=== PATIENT | female | born 1970 | race Caucasian/White ===

== ENCOUNTER 2017-10-10 16:03 | Inpatient (IN) | payer OTHER ==
[2017-10-10 18:42] VITALS: BMI 30.9
--- NOTE | 2017-10-10 19:30 | HP ---
CIWA Score - CIWA Score Nausea/Vomitin-Int. Nausea w/Dry Heave Muscle Tremors: 4-Moderate,w/Arms Extend Anxiety: 4-Mod. Anxious/Guarded Agitation: 4-Moderately Restless Paroxysmal Sweats: 3 Orientation: 0-Oriented Tacttile Disturbances: 2-Mild Itch/Numbness/Burn Auditory Disturbances: 0-None Visual Disturbances: 0-None Headache: 3-Moderate CIWA-Ar Total Score: 24 Admission ROS BHS - HPI Chief Complaint: Withdrawal sx. Allergies/Adverse Reactions: Allergies Allergy/AdvReac Type Severity Reaction Status Date / Time Penicillins Allergy Rash Verified 10/10/17 18:47 History of Present Illness: 47 y/o woman with a long hx. of alcoholism is admitted for detox. Pt. has been in previous detox, denies significant sobriety. Exam Limitations: No Limitations - Ebola screening Have you traveled outside of the country in the last 21 days: No (N) Have you had contact with anyone from an Ebola affected area: No Have you been sick,other than usual withdrawal symptoms: No Do you have a fever: No - Review of Systems Constitutional: Diaphoresis, Unexplained wgt Loss Respiratory: reports: Cough Cardiac: reports: Palpitations GI: reports: Nausea, Vomiting, Abdominal cramping : reports: No Symptoms Reported Musculoskeletal: reports: Back Pain, Joint Pain, Muscle Pain Integumentary: reports: Sweating Neuro: reports: Seizure (once 3 yrs. ago), Tingling, Tremors Endocrine: reports: No Symptoms Reported Hematology: reports: No Symptoms Reported Psychiatric: reports: No Sypmtoms Reported Other Systems: Reviewed and Negative Patient History - Patient Medical History Hx Anemia: No Hx Asthma: No Hx Chronic Obstructive Pulmonary Disease (COPD): No Hx Cancer: No Hx Cardiac Disorders: No Hx Congestive Heart Failure: No Hx Hypertension: Yes Hx Hypercholesterolemia: No Hx Pacemaker: No HX Cerebrovascular Accident: No Hx Seizures: Yes (alcohol related seizures 3 yrs ago) Hx Dementia: No Hx Diabetes: No Hx Gastrointestinal Disorders: Yes (GERD) Hx Liver Disease: No Hx Genitourinary Disorders: No Hx Sexually Transmitted Disorders: No Hx Renal Disease (ESRD): No Hx Thyroid Disease: No Hx Human Immunodeficiency Virus (HIV): No Hx Hepatitis C: No Hx Depression: Yes Hx Suicide Attempt: No (Does not want to answer) Hx Bipolar Disorder: No Hx Schizophrenia: No - Patient Surgical History Past Surgical History: Yes Hx Neurologic Surgery: No Hx Cataract Extraction: No Hx Cardiac Surgery: No Hx Lung Surgery: No Hx Breast Surgery: No Hx Breast Biopsy: No Hx Abdominal Surgery: No Hx Appendectomy: Yes (1990) Hx Cholecystectomy: No Hx Genitourinary Surgery: No Hx Section: No Hx Orthopedic Surgery: No Hx Hysterectomy: Yes (1992) Anesthesia Reaction: No - PPD History Previous Implant?: Yes Documented Results: Negative w/proof Date: 07/18/16 Results: 0mm PPD to be Administered?: Yes - Reproductive History Patient is a Female of Child Bearing Age (11 -55 yrs old): Yes Patient : No - Smoking Cessation Smoking history: Current every day smoker Have you smoked in the past 12 months: Yes Aproximately how many cigarettes per day: 40 Cigars Per Day: 0 Hx Chewing Tobacco Use: No Initiated information on smoking cessation: Yes 'Breaking Loose' booklet given: 10/10/17 - Substance & Tx. History Hx Alcohol Use: Yes Hx Substance Use: No Substance Use Type: Alcohol Hx Substance Use Treatment: Yes (Detox [facility] 07/2016 & [facility] in [place] ) - Substances Abused Alcohol Route: Oral Frequency: Daily Amount used: white wine 3 liters Age of first use: 27 Date of Last Use: 10/10/17 Family Disease History - Family Disease History Family Disease History: CA: Father (lung ,alcoholism), Other: Father, Mother (suicidal ,depression) Admission Physical Exam BHS - Vital Signs Vital Signs: Vital Signs - 24 hr 10/10/17 18:33 Temperature 98.0 F Pulse Rate 130 H Respiratory 18 Rate Blood Pressure 133/100 - Physical General Appearance: Yes: Alcohol on Breath, Tremorous, Irritable, Sweating, Anxious HEENTM: Yes: Rhinorrhea Respiratory: Yes: Chest Non-Tender, Lungs Clear, Normal Breath Sounds Neck: Yes: Supple Breast: Yes: Breast Exam Deferred Cardiology: Yes: Regular Rhythm, Regular Rate, S1, S2 Abdominal: Yes: Normal Bowel Sounds, Non Tender, Flat Genitourinary: Yes: Within Normal Limits Back: Yes: Within Normal Limits Musculoskeletal: Yes: Within Normal Limits Extremities: Yes: Tremors Neurological: Yes: Fully Oriented, Alert Integumentary: Yes: Diaphoresis Lymphatic: Yes: Within Normal Limits - Diagnostic (1) Alcohol dependence with uncomplicated withdrawal Current Visit: Yes Status: Acute (2) GERD (gastroesophageal reflux disease) Current Visit: Yes Status: Chronic Qualifiers: Esophagitis presence: without esophagitis Qualified Code(s): K21.9 - Gastro -esophageal reflux disease without esophagitis (3) Nicotine dependence Current Visit: Yes Status: Chronic Qualifiers: Nicotine product type: cigarettes Substance use status: uncomplicated Qualified Code(s): F17.210 - Nicotine dependence, cigarettes, uncomplicated Cleared for Admission S - Detox or Rehab [facility] Level of Care: Medically Managed Detox Regimen/Protocol: Librium [facility] Breath Alcohol Content Breath Alcohol Content: 0.240 Urine Pregancy Test - Result Urine Test Results: Negative- NO Line Present Urine Drug Screen - Results Drug Screen Negative: No Urine Drug Screen Results: AMP-Amphetamines, TCA-Tricyclic Antidepress
[2017-10-10] MEDS ORDERED: NICOTINE POLACRILEX 4 MG GUM BC PRN (19:41)
[2017-10-10] MEDS ORDERED: MAGNESIUM HYDROX 2400MG/30ML ORAL SUSPENSION 30 ML CUP PO PRN (19:41)
[2017-10-10] MEDS ORDERED: LOPERAMIDE HCL 2 MG CAPSULE PO PRN (19:41)
[2017-10-10] MEDS ORDERED: chlordiazePOXIDE HCL 25 MG CAPSULE PO ONE (19:41)
[2017-10-10] MEDS ORDERED: guaiFENesin/D-METHORPHAN HB 10 ML UNIT-DOSE CUPS PO PRN (19:41)
[2017-10-10] MEDS ORDERED: P-EPHED 60MG/TRIPROLIDI 2.5MG TABLET PO PRN (19:41)
[2017-10-10] MEDS ORDERED: chlordiazePOXIDE HCL 25 MG CAPSULE PO PRN (19:41)
[2017-10-10] MEDS ORDERED: MENTHOL/PHENOL 1 EACH UD MM PRN (19:41)
[2017-10-10] MEDS ORDERED: ACETAMINOPHEN 325 MG TABLET (FP) PO PRN (19:41)
[2017-10-10] MEDS ORDERED: MAGNESIUM CITRATE 300 ML BOTTLE PO PRN (19:41)
[2017-10-10] MEDS ORDERED: MAG HYDROX/AL HYDROX/SIMETH 30 ML UNIT-DOSE CUP PO PRN (19:41)
[2017-10-10] MEDS: METOPROLOL TARTRATE 25 MG TABLET (FP) PO SCH (20:29)
[2017-10-10] MEDS: PANTOPRAZOLE 40 MG TABLET (FP) PO SCH (20:29)
[2017-10-10] MEDS: NICOTINE 21 MG/24 HOURS TOPICAL PATCH TD SCH (20:34)
[2017-10-10] MEDS ORDERED: ONDANSETRON 8 MG TABLET (FP) PO PRN (20:36)
[2017-10-10] MEDS ORDERED: ONDANSETRON 4 MG TABLET PO PRN (22:12)
[2017-10-10] MEDS: THIAMINE HCL 100 MG TABLET (FP) PO SCH (22:23)
[2017-10-10] MEDS: chlordiazePOXIDE HCL 25 MG CAPSULE PO SCH (22:24)
[2017-10-10] MEDS: hydrOXYzine PAMOATE 50 MG CAPSULE (FP) PO PRN (22:26)
[2017-10-10] MEDS: ONDANSETRON *ODT* 4 MG TABLET SL PRN (23:38)
[2017-10-10 23:50] LABS: URINE APPEARANCE CLEAR; URINE BILIRUBIN NEGATIVE (NEGATIVE); URINE BLOOD TRACE-LYSE (NEGATIVE); URINE COLOR LT. YELLOW; URINE GLUCOSE (UA) NEGATIVE (NEGATIVE); URINE KETONE TRACE (NEGATIVE); URINE NITRITE NEGATIVE (NEGATIVE); URINE PROTEIN NEGATIVE (NEGATIVE); URINE UROBILINOGEN 0.2 mg/dL (0.2-1.0)
[2017-10-11] MEDS: chlordiazePOXIDE HCL 25 MG CAPSULE PO SCH ×4 (05:13→22:23)
[2017-10-11] MEDS: ONDANSETRON *ODT* 4 MG TABLET SL PRN (05:16)
--- NOTE | 2017-10-11 08:58 | EKG ---
Test Reason : Blood Pressure : / mmHG Vent. Rate : 108 BPM Atrial Rate : 108 BPM P-R Int : 122 ms QRS Dur : 086 ms QT Int : 346 ms P-R-T Axes : 057 006 051 degrees QTc Int : 463 ms SINUS TACHYCARDIA ABNORMAL ECG NO PREVIOUS ECGS AVAILABLE Confirmed by SOFIE BENOIT, AKANKSHA ([id number]) on 10/11/2017 8:58:17 AM Referred By: Leonard Acevedo Confirmed By:AKANKSHA CARRIZALES MD
--- NOTE | 2017-10-11 08:59 | EKG ---
Test Reason : Blood Pressure : / mmHG Vent. Rate : 081 BPM Atrial Rate : 081 BPM P-R Int : 134 ms QRS Dur : 094 ms QT Int : 404 ms P-R-T Axes : 021 006 -04 degrees QTc Int : 469 ms NORMAL SINUS RHYTHM NONSPECIFIC T WAVE ABNORMALITY PROLONGED QT ABNORMAL ECG WHEN COMPARED WITH ECG OF 10-OCT-2017 20:19, T WAVE INVERSION LESS EVIDENT IN ANTERIOR LEADS Confirmed by SOFIE BENOIT, AKANKSHA ([id number]) on 10/11/2017 8:58:26 AM Referred By: Leonard Acevedo Confirmed By:AKANKSHA CARRIZALES MD
[2017-10-11] MEDS: PANTOPRAZOLE 40 MG TABLET (FP) PO SCH (10:19)
[2017-10-11] MEDS: PRENATAL VITAMINS W/ FOLIC ACID TABLET (FP) PO SCH (10:19)
[2017-10-11] MEDS: METOPROLOL TARTRATE 25 MG TABLET (FP) PO SCH (10:19)
[2017-10-11] MEDS: NICOTINE 21 MG/24 HOURS TOPICAL PATCH TD SCH (10:22)
[2017-10-11] MEDS: IBUPROFEN 400 MG TABLET (FP) PO PRN ×2 (10:22→22:25)
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
[2017-10-11] MEDS ORDERED: hydrOXYzine PAMOATE 50 MG CAPSULE (FP) PO PRN (10:48)
[2017-10-11] MEDS: hydrOXYzine PAMOATE 50 MG CAPSULE (FP) PO PRN ×2 (11:18→20:05)
[2017-10-11 11:42] LABS: HEMOGLOBIN 14.5 GM/dL (10.7-15.3); MCH 32.3 pg (25.7-33.7); MCHC 33.6 g/dl (32.0-36.0); MEAN PLT VOLUME 8.5 fl (7.5-11.1); PLATELET COUNT 201 K/MM3 (134-434); RBC 4.48 M/mm3 (3.60-5.2); RDW 14.1 % (11.6-15.6); WHITE BLOOD COUNT 5.5 K/mm3 (4.0-10.0)
[2017-10-11 12:00] LABS: ALBUMIN 4.1 g/dl (3.4-5.0); ALK PHOS 79 U/L (45-117); ANION GAP 9 (8-16); BILIRUBIN,TOTAL 0.8 mg/dL (0.2-1.0); BLOOD UREA NITROGEN 7 mg/dL (7-18); CALCIUM 9.7 mg/dL (8.5-10.1); CHLORIDE 96 mmol/L (98-107); CO2 32 mmol/L (21-32); GLUCOSE,RANDOM 167 mg/dL (74-106); POTASSIUM 4.2 mmol/L (3.5-5.1); SGOT/AST 142 U/L (15-37); SGPT/ALT 171 U/L (12-78); SODIUM 137 mmol/L (136-145); TOT PROT 7.3 g/dl (6.4-8.2)
--- NOTE | 2017-10-11 12:16 | PN ---
[facility] CIWA - CIWA Score Nausea/Vomitin-Mild Nausea/No Vomiting Muscle Tremors: 4-Moderate,w/Arms Extend Anxiety: 4-Mod. Anxious/Guarded Agitation: 4-Moderately Restless Paroxysmal Sweats: 1-Minimal Palms Moist Orientation: 0-Oriented Tacttile Disturbances: 0-None Auditory Disturbances: 0-None Visual Disturbances: 0-None Headache: 0-None Present CIWA-Ar Total Score: 14 BHS Progress Note (SOAP) Subjective: sweating tremor nausea unable to sleep throughout the night mild numbness of the feet Objective: 10/11/17 12:15 Vital Signs Temperature 98.6 F 10/11/17 09:43 Pulse Rate 93 H 10/11/17 09:43 Respiratory Rate 18 10/11/17 09:43 Blood Pressure 124/88 10/11/17 09:43 O2 Sat by Pulse Oximetry (%) Laboratory Last Values WBC 5.5 K/mm3 (4.0-10.0) 10/11/17 08:45 RBC 4.48 M/mm3 (3.60-5.2) 10/11/17 08:45 Hgb 14.5 GM/dL (10.7-15.3) D 10/11/17 08:45 Hct 43.0 % (32.4-45.2) 10/11/17 08:45 MCV 96.0 fl (80-96) 10/11/17 08:45 MCH 32.3 pg (25.7-33.7) 10/11/17 08:45 MCHC 33.6 g/dl (32.0-36.0) 10/11/17 08:45 RDW 14.1 % (11.6-15.6) D 10/11/17 08:45 Plt Count 201 K/MM3 (134-434) D 10/11/17 08:45 MPV 8.5 fl (7.5-11.1) D 10/11/17 08:45 Urine Color Lt. yellow 10/10/17 22:24 Urine Appearance Clear 10/10/17 22:24 Urine pH 6.0 (5.0-8.0) 10/10/17 22:24 Ur Specific [place] 1.010 (1.001-1.035) 10/10/17 22:24 Urine Protein Negative (NEGATIVE) 10/10/17 22:24 Urine Glucose (UA) Negative (NEGATIVE) 10/10/17 22:24 Urine Ketones Trace (NEGATIVE) H 10/10/17 22:24 Urine Blood Trace-lyse (NEGATIVE) 10/10/17 22:24 Urine Nitrite Negative (NEGATIVE) 10/10/17 22:24 Urine Bilirubin Negative (NEGATIVE) 10/10/17 22:24 Urine Urobilinogen 0.2 mg/dL (0.2-1.0) 10/10/17 22:24 RPR Titer Nonreactive (NONREACTIVE) 10/11/17 08:45 lab noted Assessment: 10/11/17 12:15 withdrawal sx Plan: continue detox
[2017-10-11 12:26] LABS: URINE LEUK ESTERASE TRACE (NEGATIVE)
[2017-10-11] MEDS: traZODone HCL 50 MG TABLET (FP) PO SCH ×2 (13:11→22:23)
[2017-10-11] MEDS: ESCITALOPRAM OXALATE 10 MG TABLET (FP) PO SCH (13:11)
[2017-10-11 13:20] LABS: URINE RBC 0-3 /hpf (0-3); URINE WBC 0-3 (0-5)
[2017-10-11 13:21] LABS: EPI CELLS MODERATE /HPF; URINE BACTERIA MODERATE /hpf (NEGATIVE)
[2017-10-11] MEDS ORDERED: FLU VACCINE QUAD 60 MCG/0.5 ML (MDV 17-18) IM ONE (14:15)
[2017-10-11] MEDS: THIAMINE HCL 100 MG TABLET (FP) PO SCH (22:23)
[2017-10-12] MEDS: chlordiazePOXIDE HCL 25 MG CAPSULE PO SCH ×3 (05:41→17:37)
[2017-10-12] MEDS: PRENATAL VITAMINS W/ FOLIC ACID TABLET (FP) PO SCH (10:24)
[2017-10-12] MEDS: NICOTINE 21 MG/24 HOURS TOPICAL PATCH TD SCH (10:24)
[2017-10-12] MEDS: ESCITALOPRAM OXALATE 10 MG TABLET (FP) PO SCH (10:24)
[2017-10-12] MEDS: PANTOPRAZOLE 40 MG TABLET (FP) PO SCH (10:24)
[2017-10-12] MEDS: METOPROLOL TARTRATE 25 MG TABLET (FP) PO SCH (10:24)
[2017-10-12] MEDS ORDERED: AZITHROMYCIN 250 MG TABLET PO ONE (11:20)
--- NOTE | 2017-10-12 11:32 | PN ---
[facility] CIWA - CIWA Score Nausea/Vomitin-No Nausea/No Vomiting Muscle Tremors: 4-Moderate,w/Arms Extend Anxiety: 3 Agitation: 3 Paroxysmal Sweats: 3 Orientation: 0-Oriented Tacttile Disturbances: 0-None Auditory Disturbances: 0-None Visual Disturbances: 0-None Headache: 0-None Present CIWA-Ar Total Score: 13 S Progress Note (SOAP) Subjective: sore throat sweats cough interrupted sleep Objective: 10/12/17 11:30 Vital Signs Temperature 98.2 F 10/12/17 09:32 Pulse Rate 103 H 10/12/17 09:32 Respiratory Rate 18 10/12/17 09:32 Blood Pressure 112/73 10/12/17 09:32 O2 Sat by Pulse Oximetry (%) Laboratory Tests 10/10/17 10/11/17 10/11/17 22:24 08:45 08:45 WBC 5.5 RBC 4.48 Hgb 14.5 D Hct 43.0 MCV 96.0 MCH 32.3 MCHC 33.6 RDW 14.1 D Plt Count 201 D MPV 8.5 D Sodium 137 Potassium 4.2 Chloride 96 L Carbon Dioxide 32 Anion Gap 9 BUN 7 D Creatinine 1.0 D Creat Clearance w eGFR 59.43 Random Glucose 167 H D Calcium 9.7 Total Bilirubin 0.8 D AST 142 H D ALT 171 H D Alkaline Phosphatase 79 D Total Protein 7.3 Albumin 4.1 Urine Color Lt. yellow Urine Appearance Clear Urine pH 6.[address] [place] 1.010 Urine Protein Negative Urine Glucose (UA) Negative Urine Ketones Trace H Urine Blood Trace-lyse Urine Nitrite Negative Urine Bilirubin Negative Urine Urobilinogen 0.2 Ur Leukocyte Esterase Trace H Urine RBC 0-3 Urine WBC 0-3 Ur Epithelial Cells Moderate Urine Bacteria Moderate RPR Titer 10/11/17 08:45 WBC RBC Hgb Hct MCV MCH MCHC RDW Plt Count MPV Sodium Potassium Chloride Carbon Dioxide Anion Gap BUN Creatinine Creat Clearance w eGFR Random Glucose Calcium Total Bilirubin AST ALT Alkaline Phosphatase Total Protein Albumin Urine Color Urine Appearance Urine pH Ur Specific [place] Urine Protein Urine Glucose (UA) Urine Ketones Urine Blood Urine Nitrite Urine Bilirubin Urine Urobilinogen Ur Leukocyte Esterase Urine RBC Urine WBC Ur Epithelial Cells Urine Bacteria RPR Titer Nonreactive redness to back of throat aaox3 ambulating no acute distress Assessment: 10/12/17 11:30 withdrawal sx Plan: continue detox increase fluids robutussin prn z-pack ordered throat lozenges prn
[2017-10-12] MEDS: hydrOXYzine PAMOATE 50 MG CAPSULE (FP) PO PRN (19:07)
[2017-10-12] MEDS: traZODone HCL 50 MG TABLET (FP) PO SCH (22:19)
[2017-10-12] MEDS: THIAMINE HCL 100 MG TABLET (FP) PO SCH (22:20)
[2017-10-12] MEDS: chlordiazePOXIDE 5 MG CAPSULE PO SCH (22:20)
[2017-10-12] MEDS: IBUPROFEN 400 MG TABLET (FP) PO PRN (22:21)
[2017-10-13] MEDS: chlordiazePOXIDE 5 MG CAPSULE PO SCH ×3 (05:47→17:34)
[2017-10-13] MEDS: ESCITALOPRAM OXALATE 10 MG TABLET (FP) PO SCH (10:12)
[2017-10-13] MEDS: PRENATAL VITAMINS W/ FOLIC ACID TABLET (FP) PO SCH (10:12)
[2017-10-13] MEDS: NICOTINE 21 MG/24 HOURS TOPICAL PATCH TD SCH (10:13)
[2017-10-13] MEDS: AZITHROMYCIN 250 MG TABLET PO SCH (10:14)
[2017-10-13] MEDS: PANTOPRAZOLE 40 MG TABLET (FP) PO SCH (10:15)
--- NOTE | 2017-10-13 10:51 | PN ---
BHS Progress Note (SOAP) Subjective: sweats my throat feels better Objective: 10/13/17 10:50 Vital Signs Temperature 97.7 F 10/13/17 09:25 Pulse Rate 98 H 10/13/17 09:25 Respiratory Rate 18 10/13/17 09:25 Blood Pressure 93/80 10/13/17 09:25 O2 Sat by Pulse Oximetry (%) aaox3 ambulating no acute distress Assessment: 10/13/17 10:50 mild withdrawal Plan: continue detox increase fluids d/c in am
[2017-10-13 14:37] LABS: SGOT/AST 40 U/L (15-37); SGPT/ALT 91 U/L (12-78)
[2017-10-13] MEDS: IBUPROFEN 400 MG TABLET (FP) PO PRN (17:38)
[2017-10-13] MEDS: THIAMINE HCL 100 MG TABLET (FP) PO SCH (22:18)
[2017-10-13] MEDS: chlordiazePOXIDE HCL 10 MG CAPSULE PO SCH (22:18)
[2017-10-13] MEDS: traZODone HCL 50 MG TABLET (FP) PO SCH (22:18)
[2017-10-14] MEDS: chlordiazePOXIDE HCL 10 MG CAPSULE PO SCH (06:01)
--- NOTE | 2017-10-14 08:44 | DS ---
[facility] Detox Discharge Summary Admission Date: 10/10/17 Discharge Date: 10/14/17 - History Present History: Alcohol Dependence - Physical Exam Results Vital Signs: Vital Signs Temperature 97.7 F 10/14/17 06:14 Pulse Rate 84 10/14/17 06:14 Respiratory Rate 18 10/14/17 06:14 Blood Pressure 109/53 10/14/17 06:14 O2 Sat by Pulse Oximetry (%) - Treatment Hospital Course: Detox Protocol Followed, Detoxed Safely, Responded well, Discharged Condition Good, Rehab Referral Accepted - Medication Discharge Medications: Ambulatory Orders Escitalopram Oxalate [Lexapro -] 20 mg PO HS 07/16/16 Pantoprazole Sodium [Protonix -] 40 mg PO BID 07/16/16 Bupropion HCl [Wellbutrin Sr] 150 mg PO DAILY 10/10/17 Escitalopram Oxalate [Lexapro -] 20 mg PO DAILY #30 tablet 10/11/17 Trazodone HCl [Desyrel -] 150 mg PO HS #30 tablet 10/11/17 - Diagnosis (1) Alcohol dependence with uncomplicated withdrawal Current Visit: Yes Status: Chronic (2) Alcohol-induced anxiety disorder Current Visit: Yes Status: Acute (3) Alcohol-induced sleep disorder Current Visit: Yes Status: Acute (4) Anxiety disorder Current Visit: Yes Status: Acute (5) HTN (hypertension) Current Visit: Yes Status: Chronic Qualifiers: Hypertension type: essential hypertension Qualified Code(s): I10 - Essential (primary) hypertension (6) GERD (gastroesophageal reflux disease) Current Visit: Yes Status: Chronic Qualifiers: Esophagitis presence: without esophagitis Qualified Code(s): K21.9 - Gastro -esophageal reflux disease without esophagitis (7) Nicotine dependence Current Visit: Yes Status: Chronic Qualifiers: Nicotine product type: cigarettes Substance use status: uncomplicated Qualified Code(s): F17.210 - Nicotine dependence, cigarettes, uncomplicated (8) Alcohol induced insomnia Current Visit: No Status: Acute (9) Alcohol-induced anxiety disorder Current Visit: No Status: Acute (10) Anxiety Current Visit: No Status: Chronic (11) Chronic back pain Current Visit: No Status: Chronic Qualifiers: Back pain location: low back pain Back pain laterality: bilateral Sciatica presence: with sciatica Sciatica laterality: bilateral sciatica Qualified Code(s): M54.42 - Lumbago with sciatica, left side; M54.41 - Lumbago with sciatica, right side; M54.41 - Lumbago with sciatica, right side; G89.29 - Other chronic pain; G89.29 - Other chronic pain - AMA Did Patient Leave Against Medical Advice: No
[2017-10-14] MEDS: PRENATAL VITAMINS W/ FOLIC ACID TABLET (FP) PO SCH (09:30)
[2017-10-14] MEDS: PANTOPRAZOLE 40 MG TABLET (FP) PO SCH (09:30)
[2017-10-14] MEDS: AZITHROMYCIN 250 MG TABLET PO SCH (09:30)
[2017-10-14] MEDS: ESCITALOPRAM OXALATE 10 MG TABLET (FP) PO SCH (09:31)
[2017-10-14] MEDS: IBUPROFEN 400 MG TABLET (FP) PO PRN (09:34)
[2017-10-14 10:07] VITALS: BP 103/78; PULSE 105; TEMP 98.4
== END 2017-10-14 09:55 | disposition home or self-care (01) | DRG 861 ==
LOC: YASAS 16:03 → Y6N 19:17
PROVIDERS: ADMIT Internal Medicine; ATTEND Internal Medicine
PROC: HZ2ZZZZ Detoxification Services for Substance Abuse Treatment (ICD-10-PCS; principal; 2017-10-10)
DX: F17.210 Nicotine dependence, cigarettes, uncomplicated (principal); F10.24 Alcohol dependence with alcohol-induced mood disorder; F10.282 Alcohol dependence with alcohol-induced sleep disorder; I10 Essential (primary) hypertension; M54.41 Lumbago with sciatica, right side; M54.42 Lumbago with sciatica, left side; G89.29 Other chronic pain; K21.9 Gastro-esophageal reflux disease without esophagitis; Z59.0 Homelessness
CPT/HCPCS: 36415; 80053; 81003; 81015; 84450; 84460; 85027; 86593; 90688; 93005; 93010; G0008